=== PATIENT | female | born 1960 | race Caucasian/White ===

== ENCOUNTER 2020-12-06 10:49 | Emergency (ER) | payer MEDICAID, SELFPAY ==
[2020-12-06 11:00] VITALS: BP 135/84; PULSE 86; RESP 16; TEMP 36.3; O2SAT 96
[2020-12-06 11:02] LABS: Bilirubin Negative (Negative); Blood Negative (Negative); Clarity Sl Cloudy (Clear); Glucose Negative (Negative); Ketones Negative (Negative); Leukocyte Esterase Negative (Negative); Nitrite Negative (Negative); Specific Gravity >= 1.030 (1.005-1.025); Urobilinogen 0.2 EU/dL (Up TO 0.2); pH 5.5 (5-8)
--- NOTE | 2020-12-06 11:28 | NUR.NOTE ---
Nursing Note: Referral given to Care Management for pt to get a PCP and establish care. Lor Barr
--- NOTE | 2020-12-06 11:30 | NUR.NOTE ---
Nursing Note:This RN witness to pelvic exam with Dr Ocampo
--- OUTSIDE RECORDS SUMMARY | 2020-12-06 11:32 | XMS_ITS ---
:1960 Author Care Team Providers Name Role Phone ROLANDA BEARD Primary Care Provider [phone] ROLANDA BEARD Referring Provider [phone] ROLANDA BEARD APRN Primary Care Provider Unavailable Allergies Code Code System Name Reaction Severity Status Onset Novocain ? ? Active ? Medications Name Status Start Date Stop Date ? ? Fish Oil 1,000 mg (120 mg-180 mg) capsule Completed ? 01/24/2019 Take 1 capsule twice a day by oral route with meals for 30 days . ibuprofen 200 mg tablet Active ? Not avai lable Take 2 tablets every 6 hours by oral route as needed. Midol Active ? Not available Takes 2 (200 mg tabs) twice a day. nitroglycerin 0.4 mg sublingual tablet Active ? Not available 1 tablet SL q5 min as needed: Max: 3 doses w/in 15 min nitroglycerin 0.4 mg/hr transdermal 24 hour patch Completed ? 04/26/2017 Apply 1 patch every day by transdermal route as needed. omeprazole 10 mg capsule,delayed release Active ? Not available Take 2 capsules every day by oral route. Problems Name Status Onset Date Source ? Gestational Diabetes Mellitus Unknown 10/31/1993 ? Tobacco User Unknown 01/25/2013 ? 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 Left Bundle Branch Block Active 12/25/2015 ? Dental Caries Unknown 12/25/2015 ? Midline Cystocele Unknown 12/25/2015 ? Uterine Prolapse Active 12/25/2015 ? Breast Lump Active 12/25/2015 ? Hyperlipidemia Active 01/23/2016 ? Adult Health Examination Active 05/23/2017 ? Cystocele with Unspecified Uterine Prolapse Active ? ? Atypical Chest Pain Active ? ? Procedures Date Name Performed by ? 01/31/1994 Delivery Information not avai lable 03/07/2018 Electrocardiogram [facility] - Internal Medic ine [address] [place] [id number] [phone] ([facility]) 02/14/2019 XR, Lumbar Spine [facility] adiology [address] [place] [address] (Work Place) 02/14/2019 XR, Abdomen, 1 View [facility] adiology [address] [place] [address] (Work Place) 02/14/2019 XR, Knee, 4 or More View [facility] - Radiology [address] [place] [address] (Work Place) 02/14/2019 XR, Knee, 4 or More [facility] l - Radiology [address] [place] [address] (Work Place) Notes: Cardiac catherization 1991 BTL 05/12/2000 Results Lab Results Date Name Specimen Result Interpretation Description Value Range Status Address ? 02/14/2019 Urinalysis, Urine ? Appearance Clear ? ? [facility] - [facility] Internal Medicine: [address] [place] [address] ? ? Urine ? Glucose negative ? ? [facility] - Internal Medicine: [address] [place] [address] ? ? Urine ? Bilirubin negative ? ? [facility] - Internal Medicine: [address] [place] [address] ? ? Urine ? Ketones negative ? ? [facility] - Internal Medicine: [address] [place] [address] ? ? Urine ? Specific 1.03 ? ? [facility] [place] [facility]: [address] [place] [address] ? ? Urine ? Blood negative ? ? [facility] - Internal Medicine: [address] [place] [address] ? ? Urine ? Ph 6.0 ? ? [facility] - Internal Medicine: [address] [place] [address] ? ? Urine ? Protein negative ? ? [facility] - Internal Medicine: [address] [place] [address] ? ? Urine ? Urobilirubin normal ? ? [facility] - Internal Medicine: [address] [place] [address] ? ? Urine ? Nitrates negative ? ? [facility] - Internal Medicine: [address] [place] [address] ? ? Urine ? Leukocytes negative ? ? [facility] - Internal Medicine: [address] [place] [address] 01/24/2019 CMP, Serum or P Normal Na 142 mEq/L 136-1 Fin al [facility] Plasma 45 Hospital mEq/L (Lab): [address], [place] ? ? P Normal K 4.2 mEq/L 3.5-5 [facility] .1 [facility] mEq/L (Lab): [address] [place] [address] ? ? P Normal Cl 102 [facility]Eq/L 98-10 [facility] (Lab): [address] [place] [address] ? ? P Normal Co2 30 mEq/L 21-32 [facility] (Lab): [address] [place] [address] ? ? P ? Agap 13.4 ? [facility] ratio Hospital (Lab): [address] [place] [address] ? ? P High Glu 101.0 70.0- [facility] 100.0 Hospital mg/dL (Lab): [address] [place] [address] ? ? P High Bun 19 mg/dL 7-18 Final [facility] mg/dL Hospital (Lab): [address] [place] [address] ? ? P Normal Creat 0.59 0.55- [facility] 1.02 Hospital mg/dL (Lab): [address] [place] [address] ? ? P ? Bn/cr 31.5 calc ? Final [facility] Hospital (Lab): [address] [place] [address] ? ? P Normal Ca 9.9 mg/dL 8.5-1 [facility] mg/dL (Lab): [address] [place] [address] ? ? P Normal Alkp 85 U/L 46-11 [facility]L [facility] (Lab): [address] [place] [address] ? ? P Normal Alt 32 U/L 14-59 [facility] (Lab): [address] [place] [address] ? ? P Normal Ast 15 U/L 15-37 [facility] (Lab): [address] [place] [address] ? ? P Normal Tbil 0.3 mg/dL <=1.2 [facility] (Lab): [address] [place] [address] ? ? P Normal Tp 7.3 g/dL 6.4-8 [facility] .2 Hospital g/dL (Lab): [address] [place] [address] ? ? P Normal Alb 4.3 g/dL 3.4-5 Final [facility] .0 Hospital g/dL (Lab): [address] [place] [address] ? ? P ? Glob 2.98 ? Final [facility] mg/dL Hospital (Lab): [address] [place] [address] ? ? P ? A/g 1.5 calc ? Final [facility] Hospital (Lab): [address] [place] [address] ? ? P ? Egfraa 127.79 ? Final [facility] Hospital (Lab): [address] [place] [address] ? ? P ? Egfrnaa 105.44 ? Final [facility] Hospital (Lab): [address] [place] [address] 01/24/2019 HbA1C WB Normal A1C 6.1 % 4.5-6 Final [facility] e (Hemoglobin .2 % Hospi arlet a1C), Blood (Lab) : [address] [place] [address] ? ? WB ? Eag 128 calc ? Final [facility] (Lab): [address] [place] [address] 06/06/2018 CMP, Serum or ? Sodium 142 mEq/L 136-1 Fi nal [facility] Plasma 45 Hospital mEq/L (Lab): [address] [place] [address] ? ? ? Potassium 3.8 mEq/L 3.5-5 [facility] .[facility] mEq/L (Lab): [address] [place] [address] ? ? ? Chloride 104 mEq/L 98-10 Final [facility] mEq/L (Lab): [address] [place] [address] ? ? ? Carbon 30 mEq/L 21-32 Final [facility] Dioxide mEq/L Hospital (Lab): [address] [place] [address] ? ? ? Anion Gap 12 ratio ? Final [facility] (Lab): [address] [place] [address] ? ? ? Calcium 8.9 mg/dL 8.5-1 Final [facility] 0.1 Hospital mg/dL (Lab): [address] [place] [address] ? ? ? Glucose 87 mg/dL 74-10 Final [facility] e 6 Hospital mg/dL (Lab): [address] [place] [address] ? ? ? Bun 11 mg/dL 7-18 Final [facility] mg/dL Hospital (Lab): [address] [place] [address] ? ? Low Creatinine 0.50 0.55- Final [place] [facility] mg/dL 1.02 Hospital mg/dL (Lab): 90 [facility] ? ? High BUN/creat 22.0 calc 12.0- Final [facility] Ratio 20.0 Hospital calc (Lab): 90 [facility] ? ? ? GFR >60 >=60 Final [facility] mL/min/1. mL/mi Hospita l 73 m2 n/1.7 (Lab): 90 3 m2 [facility] ? ? ? GFR >60 >=60 [facility] [place] mL/min/1. mL/mi Hospi arlet 73 m2 n/1.7 (Lab): 90 3 m2 [facility] ? ? ? Total Protein 6.8 g/dL 6.4-8 [facility] .2 Hospital g/dL (Lab): [address] [place] [address] ? ? ? Albumin 4.1 g/dL 3.4-5 [facility] g/dL (Lab): [address] [place] [address] ? ? ? Globulin 2.7 g/dL ? [facility] (Lab[facility] [address] [place] [address] ? ? ? A/g Ratio 1.5 calc 1.1-1 [facility] .8 Hospital calc (Lab): [address] [place] [address] ? ? ? ALT(SGPT) 27 U/L 14-59 [facility] (Lab): [address] [place] [address] ? ? ? Ast (Sgot) 16 U/L 15-37 [facility] U[facility] (Lab): [address] [place] [address] ? ? ? Alk. 65 U/L 41-10 [facility] Phosphatase 8 U/L Hospi arlet (Lab): [address] [place] [address] ? ? ? Total 0.2 mg/dL 0.1-1 Final [facility] Bilirubin .2 Hospita l mg/dL (Lab): [address] [place] [address] 06/06/2018 Lipid Panel W/ High Cholesterol 298 mg/dL <=2 00 Final [facility] Direct LDL, mg/dL Hospi arlet Serum (Lab): [address] [place] [address] ? ? ? HDL 56 mg/dL 40-60 [facility] Cholesterol mg/dL Hospi arlet (Lab): 90 [facility] ? ? High Triglycerides 167 mg/dL 30-15 [facility] 0 Hospital mg/dL (Lab): 90 [facility] ? ? ? HDL Risk 5.3 calc ? Final [place] [facility] Hospital (Lab): 90 [facility] ? ? High LDL 209 calc <=100 [facility] (Calculated) calc Hosp ital (Lab): 90 [facility] 06/06/2018 CBC W/ Auto Diff ? Wbc 4.9 4.8-1 Fin [facility] x10^3/uL 0.8 Hospital x10^3 (Lab): 90 /uL [facility] ? ? ? Rbc 4.39 3.90- [facility] x10^6/uL 5.03 Hospital x10^6 (Lab): 90 /uL [facility] ? ? ? Hgb 12.9 g/dL 12.0- [facility] 15.5 Hospital g/dL (Lab): [facility] ? ? ? Hct 39.1 % 36.0- [facility] 46.0 Hospital % (Lab): [facility] ? ? ? Mcv 89.1 fL 81.0- [facility] 99.0 Hospital fL (Lab): [facility] ? ? Low Mch 29.4 pg 33.0- [facility] 36.0 Hospital pg (Lab): [facility] ? ? ? Mchc 33.0 g/dL 33.0- [facility] 36.0 Hospital g/dL (Lab): [facility] ? ? ? RDW-CV 13.1 % 11.6- [facility] 14.8 Hospital % (Lab): 90 [facility] ? ? ? Plt 288 150-4 [facility] x10^3/uL 00 Hospital x10^3 (Lab): 90 /uL [facility] ? ? ? Neut % 63.7 % 40.0- [facility] 74.0 Hospital % (Lab): 90 [facility] ? ? ? Lymph % 26.6 % 19.0- [facility] 48.0 Hospital % (Lab): 90 [facility] ? ? ? Summit% 7 % 3-10 [facility] % Hospital (Lab): 90 [facility] ? ? ? Eos% 2 % 1-7 % [facility] (Lab): 90 [facility] ? ? ? Baso% 1 % 0-2 % [facility] (Lab): 90 [facility] ? ? ? Neut # 3.09 1.00- [facility] x10^3/uL 7.00 Hospital x10^3 (Lab): 90 /uL [facility] ? ? ? Lymph# 1.29 1.20- [facility] x10^3/uL 3.40 Hospital x10^3 (Lab): 90 /uL [facility] ? ? ? Summit# 0.34 0.10- [facility] x10^3/uL 0.70 Hospital x10^3 (Lab): 90 /uL [facility] ? ? ? Eos # 0.10 0.00- [facility] x10^3/uL 0.70 Hospital x10^3 (Lab): 90 /uL [facility] ? ? ? Baso # 0.0 0.0-0 [facility] x10^3/uL .2 Hospital x10^3 (Lab): 90 /uL [facility] 03/08/2018 Electrocardiogra ? No observation ? ? ? [facility] - m recorded. Interna l Medicine: 103 [facility] 03/07/2018 CBC W/ Auto Diff ? Wbc 5.3 4.8-1 Fin [facility] x10^3/uL 0.8 Hospital x10^3 (Lab): 90 /uL [facility] ? ? ? Rbc 4.48 3.90- [facility] x10^6/uL 5.03 Hospital x10^6 (Lab): 90 /uL [facility] ? ? ? Hgb 13.5 g/dL 12.0- [facility] 15.5 Hospital g/dL (Lab): 90 [facility] ? ? ? Hct 39.6 % 36.0- [facility] 46.0 Hospital % (Lab): 90 [facility] ? ? ? Mcv 88.4 fL 81.0- [facility] 99.0 Hospital fL (Lab): 90 [facility] ? ? Low Mch 30.1 pg 33.0- [facility] 36.0 Hospital pg (Lab): 90 [facility] ? ? ? Mchc 34.1 g/dL 33.0- [facility] 36.0 Hospital g/dL (Lab): 90 [facility] ? ? ? RDW-CV 13.7 % 11.6- [facility] 14.8 Hospital % (Lab): 90 [facility] ? ? ? Plt 276 150-4 [facility] x10^3/uL 00 Hospital x10^3 (Lab): 90 /uL [facility] ? ? ? Neut % 65.2 % 40.0- [facility] 74.0 Hospital % (Lab): 90 [facility] ? ? ? Lymph % 23.4 % 19.0- [facility] 48.0 Hospital % (Lab): 90 [facility] ? ? ? [place]% 8 % 3-10 [facility] % Hospital (Lab): 90 [facility] ? ? ? Eos% 3 % 1-7 % [facility] (Lab): 90 [facility] ? ? ? Baso% 1 % 0-2 % [facility] (Lab): 90 [facility] ? ? ? Neut # 3.43 1.00- [facility] x10^3/uL 7.00 Hospital x10^3 (Lab): 90 /uL [facility] ? ? ? Lymph# 1.23 1.20- [facility] x10^3/uL 3.40 Hospital x10^3 (Lab): 90 /uL [facility] ? ? ? Summit# 0.40 0.10- [facility] x10^3/uL 0.70 Hospital x10^3 (Lab): 90 /uL [facility] ? ? ? Eos # 0.16 0.00- [facility] x10^3/uL 0.70 Hospital x10^3 (Lab): 90 /uL [facility] ? ? ? Baso # 0.0 0.0-0 [facility] x10^3/uL .2 Hospital x10^3 (Lab): 90 /uL [facility] 03/07/2018 CMP, Serum or ? Sodium 143 mEq/L 136-1 Fi [facility] Plasma 45 Hospital mEq/L (Lab): 90 [facility] ? ? ? Potassium 3.8 mEq/L 3.5-5 Final [facility] .1 Hospital mEq/L (Lab): 90 [facility] ? ? ? Chloride 105 mEq/L 98-10 Final [facility] 7 Hospital mEq/L (Lab): 90 [facility] ? ? ? Carbon 30 mEq/L 21-32 Final [facility]L Hospital (Lab): 90 [facility] ? ? ? Anion Gap 12 ratio ? [facility] (Lab): 90 [facility] ? ? ? Calcium 9.2 mg/dL 8.5-1 [facility] mg/dL (Lab): 90 [facility] ? ? ? Glucose 91 mg/dL 74-10 [facility] mg/dL (Lab): 90 [facility] ? ? ? Bun 12 mg/dL 7-18 [facility] (Lab): 90 [facility] ? ? ? Creatinine 0.55 0.55- Final [place] mg/dL 1.02 Hospital mg/dL (Lab): 90 [facility] ? ? High BUN/creat 21.8 calc 12.0- Final [facility] Ratio 20.0 Hospital calc (Lab): 90 [facility] ? ? ? GFR >60 >=60 Final [facility] mL/min/1. mL/mi Hospita l 73 m2 n/1.7 (Lab): 90 3 m2 [facility] ? ? ? GFR >60 >=60 Final [facility] [place] mL/min/1. mL/mi Hospi arlet 73 m2 n/1.7 (Lab): 90 3 m2 [facility] ? ? ? Total Protein 7.2 g/dL 6.4-8 [facility] g/dL (Lab): 90 [facility] ? ? ? Albumin 4.2 g/dL 3.4-5 [facility] g/dL (Lab): [address] [place] [address] ? ? ? Globulin 3.0 g/dL ? Final [facility] Hospital (Lab): 90 [facility] ? ? ? A/g Ratio 1.4 calc 1.1-1 Final [facility] .8 Hospital calc (Lab): [address] [place] [address] ? ? ? ALT(SGPT) 38 U/L 14-59 Final [facility] e U/L Hospital (Lab): [address] [place] [address] ? ? ? Ast (Sgot) 21 U/L 15-37 Final [facility] U/L Hospital (Lab): [address] [place] [address] ? ? ? Alk. 82 U/L 41-10 Final [facility] Phosphatase 8 U/L Hospi arlet (Lab): [address] [place] [address] ? ? ? Total 0.2 mg/dL 0.1-1 Final [facility] Bilirubin .2 Hospita l mg/dL (Lab): [address] [place] [address] 05/17/2017 HbA1C ? No observation ? ? ? *DO Not (Hemoglobin recorded. Us e* Ch a1C), Blood Lab: [address] [place] [address] 05/17/2017 CBC W/ Auto Diff ? No observation ? ? ? recorded. 05/17/2017 CMP, Serum or ? No observation ? ? ? Plasma recorded. 05/17/2017 Lipid Panel, ? No observation ? ? ? [facility] Serum recorded. Hospita l (Med Surg) : 90 [facility] ? Urinalysis, ? Appearance Clear ? ? [facility]: 103 [facility] ? ? ? Glucose negative ? ? [facility] - Internal Medicine: 103 [facility] ? ? ? Bilirubin negative ? ? [facility] - Internal Medicine: 103 [facility] ? ? ? Ketones negative ? ? [facility] - Internal Medicine: [address] [facility] ? ? ? Specific 1.015 ? ? [facility] [place] [facility]: [address] [place] [address] ? ? ? Blood negative ? ? [facility] - Internal Medicine: [address] [facility] ? ? ? Ph 7.0 ? ? [facility] - [facility] Medicine: [address] [facility] ? ? ? Protein negative ? ? [facility] - Internal Medicine: [address] [place] [address] ? ? ? Urobilirubin normal ? ? [facility] - Internal Medicine: [address] [place] [address] ? ? ? Nitrates negative ? ? [facility] - [facility] Medicine: [address] [place] [address] ? ? ? Leukocytes negative ? ? [facility] - Internal Medicine: [address] [place] [address] ? Urinalysis, Urine ? Appearance Clear ? ? [facility] Medicine: [address] [place] [address] ? ? Urine ? Glucose negative ? ? [facility] - Internal Medicine: [address] [place] [address] ? ? Urine ? Bilirubin negative ? ? [facility] - [facility] Medicine: [address] [place] [address] ? ? Urine ? Ketones negative ? ? [facility] - Internal Medicine: [address] [place] [address] ? ? Urine ? Specific 1.010 ? ? [facility] [place] [facility]: [address] [place] [address] ? ? Urine ? Blood negative ? ? [facility] - Internal Medicine: [address] [place] [address] ? ? Urine ? Ph 7.0 ? ? [facility] - Internal Medicine: [address] [place] [address] ? ? Urine ? Protein negative ? ? [facility] - [facility] Medicine: [address] [place] [address] ? ? Urine ? Urobilirubin normal ? ? [facility] - Internal Medicine: [address] [place] [address] ? ? Urine ? Nitrates negative ? ? [facility] - Internal Medicine: [address] [place] [address] ? ? Urine ? Leukocytes negative ? ? [facility] - Internal Medicine: [address] [place] [address] Past Encounters None recorded. Social History Tobacco Smoking Status Former Smoker Notes: 02/14/19 Vaccine List None recorded. Plan of Care Reminders Provider Appointments None ? ? recorded. Lab None ? ? recorded. Referral None ? ? recorded. Procedures None ? ? recorded. Surgeries None ? ? recorded. Imaging None ? ? recorded. Vitals 02/14/2019 01:00PM ACUTE - ESTABLISHED Height Weight BMI Blood Pressure 151.13 cm 70.31 kg 30.8 kg/m2 130/78 mm[Hg] 01/24/2019 10:00AM COMPLEX FOLLOW UP Height Weight BMI Blood Pressure 151.13 cm 70.99 kg 31.1 kg/m2 132/78 mm[Hg] 06/13/2018 01:40PM Annual Comprehensive Visit Height Weight BMI Blood Pressure 151.13 cm 68.49 kg 30 kg/m2 104/68 mm[Hg] 03/07/2018 01:20PM PRE-OP 40 Height Weight BMI Blood Pressure 151.13 cm 69.17 kg 30.3 kg/m2 120/64 mm[Hg] 05/23/2017 12:40PM ANNUAL EXAM Height Weight BMI Blood Pressure 151.13 cm 70.08 kg 30.7 kg/m2 126/72 mm[Hg] 04/26/2017 03:00PM NEW PATIENT Height Weight BMI Blood Pressure 151.13 cm 68.95 kg 30.2 kg/m2 124/82 mm[Hg]
--- NOTE | 2020-12-06 11:33 | ED.GENADUL_ITS ---
Discharge Plan Disposition Patient Disposition: HOME Condition: Improving Discharge Details Clinical Impression: Uterine prolapse Primary Care Provider: Jasper Darling ED Provider: Doyle Ocampo Home Meds and New Rx's Prescriptions: Continued nitroglycerin 0.4 mg tablet, sublingual 0.4 mg SL Q5-15M PRNRF: 0 omeprazole magnesium 20 mg tablet,delayed release (DR/EC) 20 mg PO DAILY RF: 0 ibuprofen 100 MG tablet 200 mg PO TID RF: 0 Discharge Instructions Instructions: Uterine Prolapse (ED) Additional Instructions: I discussed your case today with Dr. Singer. Please continue to use your pessary and clean it as you have been. May use Tylenol if needed for pain. Continue your pelvic floor exercises. Return if you develop a fever, vomiting, or any other acute concerns. Medical Decision Making 60-year-old female with known pelvic floor dysfunction and uterine prolapse for which she uses a pessary. She reports burning irritation of her groin that is worse when she does not have the pessary in and when she is upright. She is not had a fever or vaginal discharge. On exam she is well-appearing. A bimanual exam reveals uterine prolapse, no other masses, no discharge. Discussed with Dr. Singer who knows the patient well. Will not change control coordinator but rather encouraged the patient to continue to use her pessary. I did obtain a urine sample which was without evidence of infection. Patient reassured, counseled on home management, she is stable for discharge to home and will follow up in gynecology clinic. HPI General Mode of arrival: ambulatory . Date/Time Provider Initiated Documentation: 12/06/20 10:51 . Limitations to Documentation: no limitations . Information obtained by: patient . History of Present Illness 60 year old F presents to the emergency department with the chief complaint of Uterine prolapse, described as moderate and similar to prior episodes, Quality is described as dull and constant, and is localized to the pelvis and genitals. Patient reports no radiation. Patient started experiencing this month(s) and it has been intermittent. No relieving factors improve symptom(s), Other factors that worsen symptoms (Worse with upright position) . Patient notes denies loss of appetite and nausea/vomiting. Patient did receive the following treatments prior to arrival, none Related Data Home Medications Medication Instructions Recorded Confirmed ibuprofen 200 mg PO TID 11/01/17 12/06/20 nitroglycerin 0.4 mg sublingual 0.4 mg SL Q5-15M PRN 01/23/19 12/06/20 tablet omeprazole magnesium 20 mg 20 mg PO DAILY 01/23/19 06/12/20 tablet,delayed release Allergies Allergy/AdvReac Type Severity Reaction Status Date / Time No Known Drug Allergies Allergy Unverified 12/06/20 11:07 General Stated Complaint: Abd Prob INDU: 3 Review of Systems Narrative: 6 systems reviewed and otherwise negative FOR[facility]LY [facility], [facility] Medical History Hx of chest pain s/p cardiac cath 09/1992. Nl coronary arteries. Dx with cardiac spasm. Pain relieved with Nitro. 07/2020. No CP in years. Pelvic organ prolapse quantification stage 3 cystocele 2014 -fitted with 4 ring with support pessary. [place] [place] Psychiatric illness 07/2020 paranoid schizophrenia. Currently no PCP or psychiatrist. 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 ([phone] Urinary incontinence ? Detrusor instability. Plan was TVT at time of hysterectomy. Social History Smoking/Tobacco Use Status: Former Tobacco Use Second Hand Exposure: No Smoking risk assessment performed?: Yes Alcohol Intake: never Drug use: Never Substance use type: does not use Caregiver/Support person: Yes (Cathleen at 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 Denies contact with her twin daughters Number of Children: 6 Do you need help understanding health information?: Often current occupation: Disabled secondary to paranoid schizophrenia Sexually active: No What is your relationship status?: Panel score (0-1 are the most socially isolated patients): 0 Seatbelt use: always Female Reproductive History Menstrual Menopause type: natural Exam Narrative Exam Narrative: GEN: awake, alert, oriented 3. Pleasant, well groomed, interactive. HEAD: Normocephalic, atraumatic ENT: Mucous membranes moist, oropharynx unremarkable, External ear exam unremarkable EYES: PERRL, EOMI NECK: Full ROM, no RENATO, no menigismus CHEST/RESP: Nontender, clear to auscultation bilateral, no wheeze/rhonchi/rales CARDIOVASCULAR: RRR, no murmur, rub stephenie. 2+ Rad pulse bilateral ABDOMEN: Soft, nontender, no mass. +Bowel sounds Business Intelligence Engineer: Uterine prolapse present that is nontender. No other masses appreciated. Tissue is pink and healthy appearing. No discharge. EXT: Full ROM, no edema, no rash Neuro: Grossly normal neurologic exam, conversant, interactive. Psych: Speech fluent, thoughts congruent, affect normal Course Vital Signs Vital signs: Vital Signs Temperature 36.3 C L 12/06/20 11:00 Pulse 86 12/06/20 11:00 Respiratory Rate 16 12/06/20 11:00 Blood Pressure 135/84 12/06/20 11:00 Pulse Oximetry 96 12/06/20 11:00 Temperature 36.3 C L 12/06/20 11:00 Temperature Source Skin 12/06/20 11:00 Pulse 86 12/06/20 11:00 Respiratory Rate 16 12/06/20 11:00 Respiratory Effort Non-Labored 12/06/20 11:00 Blood Pressure 135/84 12/06/20 11:00 Pulse Oximetry 96 12/06/20 11:00 Oxygen Delivery Method Room Air 12/06/20 11:00 Oxygen Flow Rate 0 12/06/20 11:00 Pain Level 3 12/06/20 11:00 Lab/Test Results Lab/Test Results: Laboratory Tests Range/Units 12/06/20 10:58 Urine Color (Yellow) Yellow Urine Clarity (Clear) Sl cloudy Urine pH (5-8) 5.5 Ur Specific Snyder (1.005-1.025) >= 1.030 H Urine Protein (Negative) mg/dL Negative Urine Ketones (Negative) mg/dL Negative Urine Blood (Negative) Negative Urine Nitrite (Negative) Negative Urine Bilirubin (Negative) Negative Urine Urobilinogen (Up TO 0.2) EU/dL 0.2 Ur Leukocyte Esterase (Negative) Negative Urine Glucose (Negative) mg/dL Negative
[2020-12-06 11:50] VITALS: BP 148/99; PULSE 89; RESP 16; TEMP 36.3; O2SAT 98
== END 2020-12-06 11:49 | disposition home or self-care (01) ==
PROVIDERS: Emergency Provider Emergency Medicine; PCP Family Medicine
DX: N81.3 Complete uterovaginal prolapse (principal); R10.30 Lower abdominal pain, unspecified
CPT/HCPCS: 99284; 81003; 99283